=== PATIENT | male | born 1980 | race Caucasian/White ===

== ENCOUNTER 2022-11-03 12:44 | Emergency (ER) | payer BC ==
[2022-11-03 13:51] LABS: ANION GAP 8.5 meq/L (7-15); CHLORIDE,CL 106 mmol/L (98-107); SODIUM,NA 142 mmol/L (136-145)
[2022-11-03 13:57] LABS: ESTIMATED GFR 108 mL/min (>=60)
[2022-11-03] MEDS: Iopamidol 755 Mg/ML 100 ML Bottle IVPUSH ONE (14:06)
[2022-11-03 14:32] LABS: PTT,PARTIAL THROMBOPLSTIN TIME 24.1 SEC (23.6-29.8)
[2022-11-03] MEDS: Lactated Ringers 1,000 ML IV SCH (14:42)
[2022-11-03 14:59] LABS: BARBITURATE SCREEN,URINE NEGATIVE (NEGATIVE); BENZODIAZEPINES SCREEN,URINE NEGATIVE (NEGATIVE); EDDP,URINE SCREEN NEGATIVE (NEGATIVE); TCA SCREEN,URINE NEGATIVE (NEGATIVE); THC SCREEN,URINE 50 NG/ML NEGATIVE (NEGATIVE)
[2022-11-03 15:00] LABS: BUPRENORPHINE SCREEN,URINE NEGATIVE (NEGATIVE)
[2022-11-03] MEDS: Nicotine 21 MG/24 Hr Patch TRDERM ONE (15:19)
[2022-11-03] MEDS: fentaNYL 50 MCG/ML SDV IVPUSH ONE (15:21)
[2022-11-03] MEDS: Sodium Chloride 0.9% 10 ML Syringe FLUSH PRN (15:23)
[2022-11-03 15:52] VITALS: BP 156/94; PULSE 57
== END 2022-11-03 17:05 ==
LOC: LL.ED 12:44
DX: R42 Dizziness and giddiness (principal); Z88.1 Allergy status to other antibiotic agents; Z88.8 Allergy status to other drugs, medicaments and biological substances
CPT/HCPCS: 36415; 70450; 70496; 70498; 80053; 80305-QW; 80307; 81001; 83735; 84100; 84443; 84484; 85025; 85610; 85730; 86140; 93005; 93010; 96361; 96374; 99284; 99285-25; A9270-GY; J3010; J3490; J7120; Q9967

== ENCOUNTER 2024-06-12 08:24 | Day surgery (SDC) | payer BC ==
[~2024-06-12 08:24] MED LIST: Midazolam 1 MG/ML 2 ML SDV ONE; Propofol 200 MG/20 ML SDV ONE
[2024-06-12] MEDS ORDERED: Sodium Chloride 0.9% 10 ML Syringe FLUSH PRN (08:30)
[2024-06-12] MEDS: Lactated Ringers 1,000 ML IV SCH (08:55)
== END 2024-06-12 10:35 | disposition home or self-care (01) ==
LOC: LL.SDS 08:24
PROVIDERS: ATTEND Surgery
DX: Z12.11 Encounter for screening for malignant neoplasm of colon (principal); D12.4 Benign neoplasm of descending colon; J44.9 Chronic obstructive pulmonary disease, unspecified; E78.2 Mixed hyperlipidemia; F17.210 Nicotine dependence, cigarettes, uncomplicated; F41.9 Anxiety disorder, unspecified; F32.A Depression, unspecified; F43.89 Other reactions to severe stress; Z88.5 Allergy status to narcotic agent; Z88.8 Allergy status to other drugs, medicaments and biological substances; Z88.1 Allergy status to other antibiotic agents; Z79.899 Other long term (current) drug therapy
CPT/HCPCS: 45380; J2250; J2704; J7120